=== PATIENT | male | born 1955 | race Caucasian/White ===

== ENCOUNTER 2024-03-13 19:00 | Emergency (ER) | payer MEDICARE, SELFPAY ==
[2024-03-13 19:06] VITALS: BP 144/86; PULSE 69; RESP 18; TEMP 36.6; O2SAT 96; BMI 36.6
--- NOTE | 2024-03-13 19:59 | XRR_ITS ---
PROCEDURE INFORMATION: Exam: XR Right Wrist Exam date and time: 03/13/2024 8:52 PM Age: 68 years old Clinical indication: Injury or trauma; Fall; Patient HX: RT wrist pain post foosh; Additional info: Fall injury TECHNIQUE: Imaging protocol: Radiologic exam of the right wrist. Views: 3 or more views. COMPARISON: No relevant prior studies available. FINDINGS: Bones/joints: No acute fractures or subluxations. Moderate degenerative changes of the wrist with joint space narrowing. Soft tissues: Normal. XR/XR wrist RT min 3V* [id number] IMPRESSION: No acute fractures or subluxations.
--- NOTE | 2024-03-13 20:22 | W.ED.EXTPRO ---
HPI - Extremity Problem General: Chief complaint: Extremity Injury, Upper Stated complaint: rt wrist injury Time Seen by Provider: 03/13/24 19:58 History of Present Illness: 68-year-old male patient comes in for injury to the right wrist. Patient reports that he was stepping off a stool backwards when he lost his footing and stumbled backwards catching himself with outstretched arms. Patient has an old injury to the right wrist which he believes he may have aggravated. Patient has some radial swelling of the right wrist area. Patient appears nontoxic. Patient reports pain at area of swelling. Review of Systems General: Reports: 10 or more systems reviewed and unremarkable except in HPI and below Physical Exam Const: COMMON NORMALS: alert HENMT: COMMON NORMALS: normocephalic HEAD & SCALP: normocephalic Neck/C-Spine: COMMON NORMALS: full ROM Resp: COMMON NORMALS: normal respiratory effort and clear to auscultation bilaterally AUSCULTATION: clear to auscultation bilaterally Cardio: COMMON NORMALS: regular rate RATE: regular rate GI: COMMON NORMALS: non-tender Back/Pelvis: COMMON NORMALS: thoracic and lumbar spine normal to inspection Extremity: RIGHT UPPER EXTREMITY: Yes hand & digits (Radial wrist swelling) Neuro: SENSORIUM/ORIENTATION: Yes alert Skin: COMMON NORMALS: turgor normal GENERAL SKIN EXAM: turgor normal Course Vital Signs: Vital signs: Vital Signs Temperature 97.8 F 03/13/24 19:06 Pulse Rate 69 03/13/24 19:06 Respiratory Rate 18 03/13/24 19:06 Blood Pressure 144/86 03/13/24 19:06 Pulse Oximetry 96 03/13/24 19:06 MDM - Extremity (Nontraumatic) Medical Decision Making Patient comes in for evaluation of injury to the right wrist. On exam we note some decreased range of motion and swelling to the right wrist. No snuffbox tenderness. Vital signs are normal. Differential diagnosis includes but not limited to fracture, sprain, contusion. X-ray of the wrist noted no acute fractures. Recommended follow-up with primary care for further instructions. Lab Data Radiology Impressions Wrist X-Ray 03/13/24 19:59 IMPRESSION: No acute fractures or subluxations. All radiology interpretation(s) finalized by discharge Discharge Plan Discharge Patient Disposition: Home Clinical Impression: Sprain and strain of wrist Condition: Stable Discharge Orders: Discharge ED (Routine); Ordered 03/13/24 Ordered By: Liang Tam Discharge Diet: Usual diet Discharge Activity: Increase activity as tolerated Patient Instructions: Wrist Sprain (ED) Activity Restrictions/Additional Instructions: Activity as tolerated. Use acetaminophen or ibuprofen for pain. Use ice or heat for further pain relief. Follow-up with primary care for further instructions. 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
[2024-03-13 21:56] VITALS: RESP 16
== END 2024-03-13 21:57 | disposition home or self-care (01) ==
PROVIDERS: Emergency Provider Nurse Practitioner Family
DX: S63.501A Unspecified sprain of right wrist, initial encounter (principal); S66.911A Strain of unspecified muscle, fascia and tendon at wrist and hand level, right hand, initial encounter; W01.0XXA Fall on same level from slipping, tripping and stumbling without subsequent striking against object, initial encounter
CPT/HCPCS: 73110; 99283